=== PATIENT | female | born 1945 | race Caucasian/White ===

== ENCOUNTER 2018-05-22 18:50 | Emergency (ER) | payer MEDICARE, OTHER, SELFPAY ==
[2018-05-22] VITALS (7 sets, daily range): BP systolic 141–156; BP diastolic 62–82; PULSE 86–102; RESP 11–18; TEMP 37.9; O2SAT 95–100; BMI 28.3
[2018-05-22 19:42] LABS: Bacteria Urine Few (2-10); Culture Indicated Urine Specimen Cultured; RBC Urine 1-5/HPF (0-5/HPF); Squamous Epithelial Cell Urine 0-1 /HPF; WBC Urine >100/HPF (0-5/HPF)
--- NOTE | 2018-05-22 20:08 | DI.RAD.S_ITS ---
PROCEDURE: XR ACUTE ABDOMEN SERIES INDICATIONS: Abdominal pain, N/V TECHNIQUE: One view chest and two views of the abdomen were acquired. COMPARISON: None. FINDINGS: Surgical changes and devices: None. Chest: Lungs are clear. Heart size is top normal with a left ventricular configuration. No pleural effusions. No pneumoperitoneum. Abdomen: There is a single mildly prominent small bowel loop with air-fluid level. There is gas present in the colon. Nonspecific bowel gas pattern. No suspicious calcifications. Visualized solid organ contours appear normal. Bones: No suspicious bony lesions. IMPRESSION: Nonspecific bowel gas pattern. No evidence of bowel obstruction. Dictated by: Arvin Jackson M.D. on 05/22/2018 at 21:00 Approved by: Arvin Jackson M.D. on 05/22/2018 at 21:02
--- NOTE | 2018-05-22 20:23 | ED.ABDPAIN ---
HPI - Abdominal Pain General Chief Complaint: Abdominal Pain Stated Complaint: might have appendicitis Time Seen by Provider: 05/22/18 19:00 Source: patient and family Mode of arrival: ambulatory Limitations: no limitations History of Present Illness HPI narrative: 72-year-old female nonsmoker presents with her in the chief complaint of a day and half of gradually worsening generalized abdominal pain with decreased appetite nausea and minimal vomiting. She has had no fever chills. She has had some dysuria and frequency but denies any back pain. Her pain is worse with motion and improves with rest. She denies any history of similar symptoms MD complaint: abdominal pain Onset (ago): day(s) Pain Consistency: constant Location: diffuse Severity: moderate Quality: cramping and aching Radiation: none Migration to: no migration Relieving factors: rest Exacerbating factors: movement Associated symptoms: nausea and diarrhea Related Data Previous Rx's Medication Instructions Recorded amoxicillin-pot clavulanate 1 tab PO BID #28 tab 05/23/18 [Augmentin] Allergies Allergy/AdvReac Type Severity Reaction Status Date / Time codeine Allergy Verified 05/22/18 18:59 fenofibrate [From Tricor] Allergy Verified 05/22/18 18:59 Review of Systems Constitutional Denies chills, Denies fever(s), Denies lethargy and Denies weakness Eyes Denies change in vision, Denies eye discharge, Denies irritation and Denies loss of vision ENT Ears, Nose, Mouth, and Throat: Denies change in voice, Denies neck pain and Denies sore throat Cardiovascular Denies chest pain, Denies irregular heart rhythm, Denies lightheadedness, Denies palpitations, Denies dyspnea, Denies dyspnea on exertion and Denies orthopnea Respiratory Denies cough, Denies dyspnea, Denies dyspnea on exertion and Denies wheezing Gastrointestinal Gastrointestinal: Reports abdominal pain, Denies change in bowel habits, Reports diarrhea, Reports nausea and Reports vomiting Genitourinary Denies hematuria, Denies flank pain, Denies urinary incontinence and Reports urinary urgency Musculoskeletal Denies neck pain Integumentary/Breasts Denies pruritus, Denies erythema, Denies rash and Denies wounds Neurologic Denies confusion, Denies loss of vision and Denies weakness Psychiatric Denies anxiety, Denies confusion, Denies depression, Denies homicidal ideation and Denies suicidal ideation Endocrine Denies palpitations Hematologic/Lymphatic Denies easy bruising Allergic/Immunologic Denies wheezing Exam Narrative Exam Narrative: GENERAL: 72-year-old female appears stated age, obviously uncomfortable and rubbing her belly HEAD: Atraumatic. Normocephalic. No temporal or scalp tenderness. EYES: Pupils equal round and reactive. Extraocular motions intact. No scleral icterus. No injection or drainage. ENT: Nose without bleeding, purulent drainage or septal hematoma. Throat without erythema, tonsillar hypertrophy or exudate. Uvula midline. Airway patent. NECK: Trachea midline. No JVD or lymphadenopathy. Supple, nontender, no meningeal signs. CARDIOVASCULAR: Regular rate and rhythm without murmurs, gallops, or rubs. RESPIRATORY: Clear to auscultation. Breath sounds equal bilaterally. No wheezes, rales, or rhonchi. GASTROINTESTINAL: Abdomen soft, generalized tenderness, nondistended. No hepato-splenomegaly, or palpable masses. No guarding. EXTREMITIES: No clubbing, cyanosis, or edema. No joint tenderness, effusion, or edema noted. BACK: Nontender without deformity or crepitance. No flank tenderness. NEURO: AOx3. SKIN: No rash or erythema. Initial Vital Signs Initial Vital Signs: Vital Signs Temperature 100.3 F H 05/22/18 18:53 Pulse Rate 102 H 05/22/18 18:53 Respiratory Rate 18 05/22/18 18:53 Blood Pressure 154/82 H 05/22/18 18:53 Pulse Oximetry 96 05/22/18 18:53 Course Orders Ordered: ED Orders 05/22/18 21:23 CT abdomen pelvis w con Stat 05/22/18 21:25 Complete Blood Count AUTO DIFF Stat Comprehensive Metabolic Panel Stat Lipase Stat Discontinued Medications Amoxicillin/Clavulanate Potassium (Augmentin 875-125 Mg) 1 tab PO NOW ONE Stop: 05/23/18 00:29 Last Admin: 05/23/18 00:32 Dose: 1 tab Sodium Chloride (Normal Saline 0.9%) 1,000 mls @ 1,000 mls/hr IV BOLUS ONE Stop: 05/22/18 21:06 Last Infusion: 05/22/18 22:48 Dose: 0 mls/hr Admin: 05/22/18 21:30 Dose: 1,000 mls/hr Ceftriaxone Sodium/Dextrose (Rocephin) 1 gm in 50 mls @ 100 mls/hr IV NOW ONE Stop: 05/22/18 20:37 Last Infusion: 05/22/18 22:20 Dose: 0 mls/hr Admin: 05/22/18 21:30 Dose: 100 mls/hr Ondansetron HCl (Zofran) 4 mg IV NOW ONE Stop: 05/22/18 20:08 Last Admin: 05/22/18 21:30 Dose: 4 mg Pantoprazole Sodium (Protonix) 40 mg IV NOW ONE Stop: 05/22/18 20:09 Last Admin: 05/22/18 21:30 Dose: 40 mg Vital Signs - 8 hr 05/22/18 22:04 05/22/18 23:34 05/23/18 00:00 Pulse Rate 86 94 H 98 H Respiratory Rate 11 L 11 L 104 H Blood Pressure [Left Arm] 155/65 H 141/62 H 133/64 Pulse Oximetry 100 95 96 MDM - Abdominal Pain Differential Diagnosis Differential diagnosis: Likely abdominal pain, acute appendicitis, calculus of kidney, constipation and diverticulitis Medical Records Attestation: I reviewed the patient's medical records. Lab Data Attestation: I reviewed the patient's lab results. Result diagrams: 05/22/18 21:25 05/22/18 21:25 Lab Results 05/22/18 05/22/18 05/22/18 Range/Units 19:14 21:25 21:25 WBC 15.4 H (4.5-11.0) X10^3/uL RBC 4.46 (4.0-5.2) X10^6/uL Hgb 12.9 (12.0-16.0) g/dL Hct 37.7 (36-46) % MCV 84.6 (80-100) fL MCH 28.9 (26-34) PG MCHC 34.2 (30-36) % RDW 13.6 (11.6-14.8) % Plt Count 255 (150-400) X10^3/uL Neut % (Auto) 85.3 H (50-75) % Lymph % (Auto) 7.5 L (25-40) % [place] % (Auto) 7.0 (3-14) % Eos % (Auto) 0.0 L (2-4) % Baso % (Auto) 0.2 (0-2) % Neut # (Auto) 85644 H (6984-3190) /uL Lymph # (Auto) 1200 (5503-3359) /uL [place] # (Auto) 1100 H (0-900) /uL Eos # (Auto) 0 (0-450) /uL Baso # (Auto) 0 (0-100) /uL Sodium 132 L (137-145) mmol/L Potassium 3.7 (3.4-5.1) mmol/L Chloride 94 L (98-107) mmol/L Carbon Dioxide 28 (22-32) mmol/L BUN 13 (7-17) mg/dL Creatinine 0.60 (0.52-1.04) mg/dL Estimated GFR > 60.0 (>60) mL/min BUN/Creatinine Ratio 21.7 (6-22) Glucose 120 H (80-110) mg/dL Calcium 8.9 (8.4-10.2) mg/dL Total Bilirubin 2.2 H (0.2-1.3) mg/dL AST 39 H (14-36) IU/L ALT 30 (9-52) IU/L Alkaline Phosphatase 68 (38-126) U/L Total Protein 7.9 (6.3-8.2) g/dL Albumin 4.4 (3.5-5.0) g/dL Globulin 3.5 (1.7-4.1) g/dL Albumin/Globulin Ratio 1.3 (1.0-2.8) Lipase 61 (23-300) U/L Urine RBC 1-5/hpf (0-5/HPF) Urine WBC >100/hpf H (0-5/HPF) Ur Squamous Epith Cells 0-1 /hpf Urine Bacteria Few (2-10) H (None) Ur Culture Indicated? Specimen cultured Point of care testing: Urine Dip Bedside Urine Glucose Negative Bedside Urine Bilirubin - Negative Bedside Urine Ketone - Negative Urine Specific [place] 1.010 Bedside Urine Occult Blood +/- Bedside Urine pH 7.0 Bedside Urine Protein +/- 15 Bedside Urine Nitrite - Negative Bedside Urine Leukocytes +++ [address] scan - abdomen: Radiologist's impression: diverticuilitis without abscess or perforation MDM Narrative Medical decision making narrative: Multiple etiologies for patient's symptoms considered including: [ appendicitis, kidney stones, bowel obstruction, diverticulitis versus other] Patient's symptoms improved or duration of stay with above-stated therapies. we had a discussion about antibiotic options including Augmentin verses Cipro/Flagyl Findings and discharge diagnosis discussed with patient/family followed by verbalization of understanding Return precautions discussed with patient/family whom verbalize understanding. Discharge Plan Departure Patient Disposition: Home Clinical Impression: Diverticulitis, Acute UTI Discharge Date/Time: 05/23/18 00:46 Interventions: ED Discharge Assessment Last Done: 05/23/18 00:46 Instructions: DI for Diverticulitis, DI for Urinary Tract Infection (UTI) Activity Restrictions/Additional Instructions: *You have been diagnosed with [ acute diverticulitis and urinary tract infection] *What to do: *Take medications as directed: your antibiotic has been electronically transmitted to the [facility] at your request *Follow up with your primary care provider in 2-3 days, call for an appointment. Let them know you were seen in the Emergency Department and that we ask that you be seen in follow up *Return to ER if you should have any new, worsening or concerning symptoms 1. Drink plenty of fluids with frequent small sips. 2. For the next 24 hours a clear liquid diet is advised. After that please employ a brat diet which would include bananas, rice, apples, toast. 3. Please take medications as directed. 4. Please follow-up with your doctor in the next 1-2 days. Call the office for an appointment. 5. Please return to the emergency Department for any worsening or persistent symptoms, such as increasing pain or fever. Prescriptions: New amoxicillin-pot clavulanate [Augmentin] 875-125 mg tablet 1 tab PO BID Qty: 28 RF: 0
--- NOTE | 2018-05-22 21:23 | DI.CT.S_ITS ---
PROCEDURE: CT ABDOMEN PELVIS W CON INDICATIONS: severe abdominal pain TECHNIQUE: After the administration of intravenous contrast, 5 mm thick sections acquired from the diaphragm to the symphysis. 5 mm coronal and sagittal reformats were acquired. For radiation dose reduction, the following was used: automated exposure control, adjustment of mA and/or kV according to patient size. COMPARISON: None. FINDINGS: Image quality: Excellent. ABDOMEN: Lung bases: Lung bases are clear. Heart size is normal. There is a small hiatal hernia. Solid organs: Diffuse hepatic fatty infiltration. Liver is normal in size and enhancement. Gallbladder is normal. Biliary system is non dilated. Pancreas enhances normally. Spleen is normal in size and enhancement. No adrenal nodules. Kidneys demonstrate normal size and enhancement, without hydronephrosis. Peritoneum and bowel: There are innumerable colonic diverticula, predominantly involving sigmoid colon. There is colonic wall thickening and pericolonic stranding around sigmoid colon, consistent with acute diverticulitis. There is a small pocket of extraluminal air in pelvis. A small amount of free fluid is present. No organized fluid collections to suggest diverticular abscess. Normal appendix. Small bowel loops are normal in caliber and wall thickness. Nodes and vessels: No retroperitoneal or mesenteric adenopathy by size criteria. Aorta and inferior vena cava are normal in size. Miscellaneous: No ventral hernias. PELVIS: Genitourinary: Bladder wall thickness is normal. Uterus is normal. No adnexal masses. There is small amount of free fluid. Miscellaneous: No inguinal hernias or adenopathy. Bones: No suspicious bony lesions. No vertebral body compression fractures. Degenerative changes in lumbar spine. IMPRESSION: 1. Extensive diverticulosis. Acute sigmoid diverticulitis is present. There is a small pocket of extraluminal air consistent with localized diverticular perforation. No evidence for diverticular abscess at this time. 2. Hepatic steatosis. 3. Small hiatal hernia. No significant discrepancy with the hourly shift radiology preliminary report. Dictated by: Santino Feldman M.D. on 05/23/2018 at 8:13 Approved by: Santino Feldman M.D. on 05/23/2018 at 8:22
[2018-05-22] MEDS: ONDANSETRON 4 MG/2 ML INJ IV (21:30)
[2018-05-22] MEDS: SODIUM CHLORIDE 0.9% 1,000 ML 1000 ML IV (21:30)
[2018-05-22] MEDS: PANTOPRAZOLE 40 MG VIAL IV (21:30)
[2018-05-22] MEDS: CEFTRIAXONE 1 GM/50 ML FROZ.PIGGY IV (21:30)
[2018-05-22 21:33] LABS: Add Manual Diff / Slide Review NO; Basophils Absolute Auto 0 /uL (0-100); Basophils Percent Auto 0.2 % (0-2); Eosinophils Absolute Auto 0 /uL (0-450); Hematocrit 37.7 % (36-46); Hemoglobin 12.9 g/dL (12.0-16.0); Lymphocytes Absolute Auto 1200 /uL (1100-4500); Lymphocytes Percent Auto 7.5 % (25-40); Mean Corpuscular HGB Conc 34.2 % (30-36); Mean Corpuscular Hemoglobin 28.9 PG (26-34); Mean Corpuscular Volume 84.6 fL (80-100); Monocytes Absolute Auto 1100 /uL (0-900); Neutrophils Absolute Auto 13100 /uL (1500-7000); Neutrophils Percent Auto 85.3 % (50-75); Platelet Count 255 X10^3/uL (150-400); Red Blood Cell Count 4.46 X10^6/uL (4.0-5.2); Red Cell Distribution Width 13.6 % (11.6-14.8); White Blood Cell Count 15.4 X10^3/uL (4.5-11.0)
[2018-05-22 21:43] LABS: Alanine Aminotransferase 30 IU/L (9-52); Albumin 4.4 g/dL (3.5-5.0); Albumin Globulin Ratio 1.3 (1.0-2.8); Alkaline Phosphatase 68 U/L (38-126); Aspartate Aminotransferase 39 IU/L (14-36); BUN Creatinine Ratio 21.7 (6-22); Bilirubin Total 2.2 mg/dL (0.2-1.3); Blood Urea Nitrogen 13 mg/dL (7-17); Calcium 8.9 mg/dL (8.4-10.2); Carbon Dioxide 28 mmol/L (22-32); Chloride 94 mmol/L (98-107); Estimated Glomerular Filt Rate > 60.0 mL/min (>60); Globulin 3.5 g/dL (1.7-4.1); Glucose 120 mg/dL (80-110); Lipase 61 U/L (23-300); Sodium 132 mmol/L (137-145); Total Protein 7.9 g/dL (6.3-8.2)
[2018-05-22 21:46] LABS: HEMOLYSIS 122 (0-50)
[2018-05-22 21:48] LABS: Potassium 3.7 mmol/L (3.4-5.1)
[2018-05-23] VITALS: BP 133/64; PULSE 98; RESP 104; O2SAT 96
[2018-05-23] MEDS: AMOXICILLIN/CLAV 875/125 MG 1 TAB PO (00:32)
== END 2018-05-23 00:46 | disposition home or self-care (01) ==
PROVIDERS: Emergency Provider Emergency Medicine
DX: K57.92 Diverticulitis of intestine, part unspecified, without perforation or abscess without bleeding (principal); N39.0 Urinary tract infection, site not specified
CPT/HCPCS: 36591; 74022; 74177; 80053; 81003; 81015; 83690; 85025; 87077; 87086; 87147; 96361; 96365; 96375; 99284; C9113; J2405; Q9967

== ENCOUNTER → 2021-03-19 11:32 | Outpatient (CLI) | payer MEDICARE, OTHER, SELFPAY ==
[2021-03-19 12:53] LABS: Hemoglobin A1C% w Est Avg Glu 5.8 % (4.0-6.0)
[2021-03-19 12:54] LABS: Add Manual Diff / Slide Review NO; Basophils Absolute Auto 100 /uL (0-100); Basophils Percent Auto 0.8 % (0-2); Eosinophils Absolute Auto 200 /uL (0-450); Eosinophils Percent Auto 2.7 % (2-4); Hematocrit 40.1 % (36-46); Lymphocytes Absolute Auto 2200 /uL (1100-4500); Lymphocytes Percent Auto 27.4 % (25-40); Mean Corpuscular HGB Conc 34.8 % (30-36); Mean Corpuscular Volume 83.2 fL (80-100); Monocytes Absolute Auto 600 /uL (0-900); Neutrophils Absolute Auto 5000 /uL (1500-7000); Neutrophils Percent Auto 62.1 % (50-75); Platelet Count 304 X10^3/uL (150-400); Red Blood Cell Count 4.82 X10^6/uL (4.0-5.2); Red Cell Distribution Width 13.2 % (11.6-14.8); White Blood Cell Count 8.1 X10^3/uL (4.5-11.0)
[2021-03-19 13:31] LABS: BUN Creatinine Ratio 16.4 (6-22); Blood Urea Nitrogen 11 mg/dL (7-17); Calcium 9.3 mg/dL (8.4-10.2); Carbon Dioxide 30 mmol/L (22-32); Chloride 98 mmol/L (98-107); Estimated Glomerular Filt Rate > 60.0 mL/min (>60); Glucose 114 mg/dL (80-110); HEMOLYSIS < 15 (0-50); Sodium 135 mmol/L (137-145)
[2021-03-19 14:29] LABS: Appearance Urine UA SL CLOUDY; Bilirubin Urine UA NEGATIVE (NEGATIVE); Color Urine UA YELLOW; Glucose Urine UA NEGATIVE (Negative); Ketones Urine UA NEGATIVE (NEGATIVE); Leukocyte Esterase Urine UA 3+ (NEGATIVE); Nitrite Urine UA NEGATIVE (Negative); Occult Blood Urine UA NEGATIVE (Negative); Protein Urine UA NEGATIVE (Negative); Urobilinogen Urine UA 0.2 E.U./dL (0.2)
[2021-03-19 14:42] LABS: Amorphous Sediment Urine 1+; Bacteria Urine Many (>30); Culture Indicated Urine Specimen Cultured; RBC Urine None Seen (0-5/HPF); WBC Urine 10-30/HPF (0-5/HPF)
== END ==
PROVIDERS: Referring Provider Orthopaedic Surgery; Visit Provider Orthopaedic Surgery
DX: Z01.818 Encounter for other preprocedural examination (principal); R73.9 Hyperglycemia, unspecified; Z01.812 Encounter for preprocedural laboratory examination; N39.0 Urinary tract infection, site not specified
CPT/HCPCS: 80048; 81001; 83036; 85025; 87077; 87086; 87186; 93005; 93010